=== PATIENT | male | born 1985 | race Caucasian/White ===

== ENCOUNTER 2024-07-12 15:43 | Emergency (ER) | payer OTHER ==
[~2024-07-12] VITALS: Ht 185.4 cm; Wt 90.7 kg
[2024-07-12 16:38] LABS: BASOPHILS ABSOLUTE AUTO 0.04 K/mm3 (0.00-0.23); BASOPHILS PERCENT AUTO 1 % (0-2); EOSINOPHILS ABSOLUTE AUTO 0.12 K/mm3 (0.00-0.68); EOSINOPHILS PERCENT AUTO 2 % (0-6); Hematocrit 45.6 % (37.0-53.0); Hemoglobin 16.6 g/dL (13.5-17.5); IMMATURE GRAN ABSOLUTE AUTO 0.01 K/mm3 (0.00-0.10); IMMATURE GRAN PERCENT AUTO 0 % (0-1); LYMPHOCYTES ABSOLUTE AUTO 1.78 K/mm3 (0.84-5.20); LYMPHOCYTES PERCENT AUTO 23 % (21-46); MONOCYTES ABSOLUTE AUTO 0.49 K/mm3 (0.16-1.47); MONOCYTES PERCENT AUTO 6 % (4-13); Mean Corpuscular HGB 31.6 pg (26.0-34.0); Mean Corpuscular HGB Conc 36.4 g/dL (31.5-36.5); Mean Corpuscular Volume 87 fL (80-100); Mean Platelet Volume 8.4 fL (9.1-12.4); NEUTROPHILS PERCENT AUTO 69 % (41-73); Platelet Count 192 K/mm3 (150-400); RDW Coefficient Variation 11.9 % (11.7-14.2); RDW Standard Deviation 37.1 fL (35.1-46.3); Red Blood Cell Count 5.26 M/mm3 (4.30-5.90); White Blood Cell Count 7.84 K/mm3 (4.00-11.30)
[2024-07-12] MEDS ORDERED: HYDHCL25 PO (16:53)
[2024-07-12] MEDS ORDERED: LEVOTHYROXINE25 MC9 PO (16:54)
[2024-07-12] MEDS ORDERED: Seroquel Xr50 MG PO (16:55)
[2024-07-12] MEDS ORDERED: SILD50TA PO (16:55)
[2024-07-12] MEDS ORDERED: TRAZ50 PO (16:56)
[2024-07-12] MEDS ORDERED: BRINTELLIX10 MG PO (16:57)
[2024-07-12 17:07] LABS: Ethanol (Alcohol), Blood, Med <3 mg/dL; Salicylate <1.7 mg/dL (2.8-20.0)
[2024-07-12 17:12] LABS: Acetaminophen, Random <2.0 ug/mL (10.0-30.0); Alanine Aminotransfer (ALT/SGP 29 U/L (12-78); Albumin/Globulin Ratio 1.3 (0.8-1.8); Alk Phos 50 U/L (50-136); Anion Gap 8 mmol/L (3-11); Aspartate Aminotrans (AST/SGOT 13 U/L (12-37); Bilirubin, Total 0.5 mg/dL (0.1-1.0); Blood Urea Nitrogen 18 mg/dL (8-24); Bun/Creatinine Ratio 17.5 (12.0-20.0); CO2, Blood 30 mmol/L (21-32); Calcium, Blood 9.4 mg/dL (8.5-10.1); Chloride, Blood 107 mmol/L (98-108); Creatinine, Blood 1.03 mg/dL (0.60-1.20); Globulin, Blood 3.1 g/dL (2.2-4.0); Glomerular Filtration Rate 95 (60-); Glucose, Blood 115 mg/dL (70-99); Potassium, Blood 4.3 mmol/L (3.5-5.5); Sodium, Blood 141 mmol/L (136-145); Total Protein, Blood 7.1 g/dL (6.4-8.2)
[2024-07-12 17:36] LABS: Source, Urine Voided
[2024-07-12 17:40] LABS: Appearance, Urine Clear (Clear); Bilirubin, Urine Neg (Neg); Blood, Urine Neg (Neg); Color, Urine Amber (P-Yellow); Glucose Qualitative, Urine Neg (Neg); Ketones, Urine Neg (Neg); Leukocyte Esterase, Urine Neg (Neg); Nitrite, Urine Neg (Neg); Protein, Urine Neg (Neg); Urobilinogen, Urine NORM (Normal); pH, Urine 6.5 (5.0-8.0)
[2024-07-12 17:53] LABS: U Amphetamine Screen Not Detected; U Barbituate Screen Not Detected; U Benzodiazapine Screen Not Detected; U Buprenorphine Screen Not Detected; U Cannabinoids Screen Not Detected; U Cocaine Screen Not Detected; U Methadone Screen Not Detected; U Methamphetamine Screen Not Detected; U Opiates Screen Not Detected; U Oxycodone Screen Not Detected; U Phencyclidine Screen Not Detected
[2024-07-12 18:07] LABS: CORONAVIRUS COVID-19 AG Negative (NEGATIVE); INFLUENZA A AG Negative (NEGATIVE); INFLUENZA B AG Negative (NEGATIVE)
[2024-07-13] MEDS ORDERED: Ativan1 MG PO (13:18)
[2024-07-13] MEDS ORDERED: MIRT15 PO (13:19)
== END 2024-07-12 19:43 | disposition other institution (70) ==
LOC: ER 15:43
PROVIDERS: Emergency Medicine; Student in an Organized Health Care Education/Training Program
DX: R45.851 Suicidal ideations (principal); F41.8 Other specified anxiety disorders
CPT/HCPCS: 80053; 80320; 81003; 85025; 87428-QW; 93005; 93010; 99285-25; G0480

== ENCOUNTER 2024-07-12 18:35 | Inpatient (IN) | payer SELFPAY ==
[~2024-07-12] VITALS: Ht 193 cm; Wt 97.4 kg
[~2024-07-12 18:35] MED LIST: BRINTELLIX10 MG PO; HYDHCL25 PO; LEVOTHYROXINE25 MC9 PO; SILD50TA PO; Seroquel Xr50 MG PO; TRAZ50 PO
[2024-07-12] MEDS ORDERED: Melatonin 3 MG Tab PO PRN (19:25)
[2024-07-12] MEDS ORDERED: LORazepam 2 MG Tab PO PRN (19:25)
[2024-07-12] MEDS ORDERED: HydrOXYzine Pamoate 50 MG Cap PO PRN (19:25)
[2024-07-12] MEDS ORDERED: LORazepam 2 MG/ML 1ML Injection IM PRN (19:25)
[2024-07-12] MEDS ORDERED: Ibuprofen 600 MG Tab PO PRN (19:25)
[2024-07-12] MEDS ORDERED: Haloperidol 5 MG Tab PO PRN (19:25)
[2024-07-12] MEDS ORDERED: Polyethylene Glycol 3350 17 gm PO PRN (19:30)
[2024-07-12] MEDS ORDERED: OLANZapine ODT 10 MG Tab MM PRN (19:30)
[2024-07-12] MEDS ORDERED: DiphenhydrAMINE HCl 50 MG/ML 1ML Vial IV PRN (19:30)
[2024-07-12] MEDS ORDERED: Ondansetron 4 MG SoluTab MM PRN (19:30)
[2024-07-12] MEDS ORDERED: DiphenhydrAMINE HCl 50 MG Cap PO PRN (19:30)
[2024-07-12] MEDS ORDERED: Aluminum Hydroxide 320MG/5ML 473 ML PO PRN (19:30)
[2024-07-12] MEDS ORDERED: Calcium Carbonate 500 MG Tab Chew PO PRN (19:30)
[2024-07-12] MEDS ORDERED: Acetaminophen 325 MG TABLET PO PRN (19:35)
[2024-07-12] MEDS ORDERED: FLU VACC TS2024-25(6MOS UP)/PF 45 MCG/0.5 ML SYRINGE IM SCH (19:35)
[2024-07-12] MEDS ORDERED: Haloperidol Lactate Inj. 5 MG/ML Injection IM PRN (19:35)
[2024-07-12] MEDS ORDERED: LORazepam 1 MG Tab PO SCH (21:00)
[2024-07-12] MEDS ORDERED: Mirtazapine 15 MG SoluTab PO SCH (21:00)
--- NOTE | 2024-07-13 00:04 | NUR ---
ADMISSION NOTE. PATIENT IS A PLEASANT, ALERT AND ORIENTED GENTLEMAN. hE DENIES SI,HI OR AVH AT THIS TIME, ALTHOUGH HE DOES STATE HE THINKS OF WHAT IT WOULD BE LIKE TO BE , BUT HAS NO INTENTION OF HURTING HIMSELF. hE STATES HE HAS NOT HAD ANY QUALITY SLEEP FOR THE LAST MONTH AND A HALF. APPROXIMATELY 4 MONTHS AGO, THE PATIENT STOPPED TAKING HIS ANTIDEPRESSANT THAT HE HAD BEEN ON FOR 14 YEARS, THEN 2 MONTHS AGO STARTED ON A NEW ANTIDEPRESSANT CALLED TRINTELLIX WHICH HE DOESN'T THINK IS WORKING. aT BEDTIME, JAVIER ALSO TAKES 100MG SEROQUEL AND 0.5-1 MG ATIVAN WHICH HE ALSO DOES NOT FEEL IS WORKING. aT AROUND THE SAME TIME Javier STOPPED TAKING HIS FIRST ANTIDEPRESSANT, HIS GIRLFRIEND (THE MOTHER OF HIS DAUGHTERS) MOVED BACK IN WITH HIM, AND ACCORDING TO THE PATIENT, THEY ARE HAVING THEIR (UPS AND DOWNS) cURRENTLY, THE PATIENT HAS BEEN SLEEPING FOR THE LAST 3.5 HOURS. wILL CONTINUE CLOSE MONITORING EVERY 15 INUTES FOR SAFETY AND COMFORT
--- NOTE | 2024-07-13 04:45 | NUR ---
Patient is alert and oriented times four,pleasant and cooperative with care. Was very concerned about sleep, but has slept approximtely eight hours so far tonight. Patient stated he has intermittant thoughts of dying, but that he does not have a plan. No HI or AVH noted on admission assessment. Will continue close monitoring every 15 minutes for safety and comfort.
[2024-07-13 08:14] VITALS: BP 140/75
[2024-07-13] MEDS ORDERED: Multivitamins 1 Tab PO SCH (09:00)
--- NOTE | 2024-07-13 09:41 | NUR ---
PT A/O X4. PLEASANT AND COPERATIVE. DENIES TO BE SI, HI AND AVH. PT IS WANTING HELP WITH FEELING BETTER AND IN SLEEPING. STATES HIS PCP SWITCHED HIS MEDS AROUND 4 MONTHS AGO AND HE HASN'T BEEN FEELING WELL OR SLEEPING GOOD. SAID HE DIDN'T SLEEP GOOD LAST NIGHT FROM BEING IN A NEW PLACE AND THE ROOM WASN'T DARK ENOUGH. PT IS WILLING TO WORK THROUGH HIS PROBLEMS. WILL CONTINUE TO MONITOR
[2024-07-13] MEDS ORDERED: Ativan1 MG PO (13:18)
[2024-07-13] MEDS ORDERED: MIRT15 PO (13:19)
--- NOTE | 2024-07-13 15:17 | NUR ---
PT DISCHARGED [id number]. A/O X4 . VERBALIZED UNDERSTANDING OF DISCHARGE INSTRUCTIONS AND WENT OVER PRESCRIPTIONS. PRESCRIPTIONS CALLED TO [facility]. SPOKE WITH KENDRICK THE PHARMASIST [phone]. BELONGINGS RETURNED. PT DECLINES OFFER OF NICOTINE CESSTATION COUNSELING ON DISCHARGE. EDUCATION PROVIDED FOR DEPRESSION AND SUICIDAL IDEATION. PT AMBULAED OUT TO PRIVATE VEHICLE.
== END 2024-07-13 15:12 | disposition home or self-care (01) | DRG 887 ==
LOC: BHU 18:35
PROVIDERS: ADMIT Psychiatry & Neurology Psychiatry
DX: G47.00 Insomnia, unspecified (principal); F32.A Depression, unspecified; F41.9 Anxiety disorder, unspecified; Z96.612 Presence of left artificial shoulder joint; Z96.611 Presence of right artificial shoulder joint; F19.11 Other psychoactive substance abuse, in remission; Z79.899 Other long term (current) drug therapy; Z88.8 Allergy status to other drugs, medicaments and biological substances; Z79.890 Hormone replacement therapy
CPT/HCPCS: A9270